=== PATIENT | male | born 1975 | race Caucasian/White ===

== ENCOUNTER 2020-07-29 21:58 | Emergency (ER) | payer BC ==
[2020-07-29 22:07] VITALS: Wt 154.5 kg
[2020-07-29] MEDS ORDERED: HYDROCODON-ACE1 EA10 PO (22:49)
[2020-07-29] MEDS ORDERED: STERAPRED DS 1210 MG PO (22:49)
[2020-07-29] MEDS ORDERED: COLCRYS0.6 MG PO (22:49)
[2020-07-29] MEDS ORDERED: INDOCIN25 MG PO (22:51)
[2020-07-29 23:06] VITALS: BP 144/89
== END 2020-07-29 23:07 | disposition home or self-care (01) ==
LOC: D.ER 21:58
DX: M10.9 Gout, unspecified (principal)